=== PATIENT | male | born 1980 | race Caucasian/White ===

== ENCOUNTER 2018-11-28 21:45 | Emergency (ER) | payer MEDICAID ==
[~2018-11-28] VITALS: Ht 172.7 cm; Wt 70.3 kg
[2018-11-28 21:51] VITALS: Ht 172.7 cm; Wt 70.3 kg
[2018-11-28 23:37] VITALS: BP 101/70
== END 2018-11-28 23:37 | disposition home or self-care (01) ==
LOC: ED 21:45
DX: L03.113 Cellulitis of right upper limb (principal)
CPT/HCPCS: J0696